=== PATIENT | female | born 1990 | race Caucasian/White ===

== ENCOUNTER 2024-07-11 17:17 | Observation (INO) | payer OTHER, SELFPAY ==
--- NOTE | 2024-07-11 17:46 | PM.OBTRLD ---
Visit Information Visit Information Date of evaluation: 07/11/24 Primary OB Provider: Zoey Banuelos On-call OB Provider: Zoey Banuelos Reason for Evaluation: Yes other
[2024-07-11 18:21] LABS: Add Manual Diff / Slide Review NO; Basophils Absolute Auto 0 /uL (0-100); Basophils Percent Auto 0.4 % (0-2); Eosinophils Absolute Auto 100 /uL (0-450); Eosinophils Percent Auto 0.6 % (2-4); Hematocrit 40.6 % (36-46); Hemoglobin 13.7 g/dL (12.0-16.0); Lymphocytes Absolute Auto 2000 /uL (1100-4500); Lymphocytes Percent Auto 16.8 % (25-40); Mean Corpuscular HGB Conc 33.7 % (30-36); Mean Corpuscular Hemoglobin 31.1 PG (26-34); Mean Corpuscular Volume 92.4 fL (80-100); Monocytes Absolute Auto 600 /uL (0-900); Monocytes Percent Auto 5.3 % (3-14); Neutrophils Absolute Auto 9000 /uL (1500-7000); Neutrophils Percent Auto 76.9 % (50-75); Platelet Count 230 X10^3/uL (150-400); Red Cell Distribution Width 13.9 % (11.6-14.8); White Blood Cell Count 11.7 X10^3/uL (4.5-11.0)
[2024-07-11 18:43] LABS: Alanine Aminotransferase 17 IU/L (<35); Albumin 3.7 g/dL (3.5-5.0); Albumin Globulin Ratio 1.3 (1.0-2.8); Alkaline Phosphatase 103 U/L (38-126); Aspartate Aminotransferase 22 IU/L (14-36); BUN Creatinine Ratio 18.3 (6-22); Bilirubin Total 0.5 mg/dL (0.2-1.3); Blood Urea Nitrogen 13 mg/dL (7-17); Calcium 9.1 mg/dL (8.4-10.2); Carbon Dioxide 24 mmol/L (22-32); Chloride 106 mmol/L (98-107); Estimated Glomerular Filt Rate > 60 mL/min (>60); Globulin 2.8 g/dL (1.7-4.1); Glucose 90 mg/dL (70-100); HEMOLYSIS < 15 (0-50); Potassium 3.4 mmol/L (3.4-5.1); Sodium 134 mmol/L (137-145); Total Protein 6.5 g/dL (6.3-8.2); Uric Acid 2.5 mg/dL (2.5-6.2)
[2024-07-11 18:45] LABS: Creatinine Urine Random 178.03 mg/dL; Protein (Total) Urine Random 11 mg/dL (0-12); Protein Creatinine Ratio Urine 0.06 GRAM/24H
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
== END 2024-07-11 19:50 | disposition home or self-care (01) ==
PROVIDERS: Admitting Provider Advanced Practice Midwife; Referring Provider Advanced Practice Midwife; Visit Provider Advanced Practice Midwife
DX: O99.413 Diseases of the circulatory system complicating pregnancy, third trimester (principal); R03.0 Elevated blood-pressure reading, without diagnosis of hypertension; Z3A.37 37 weeks gestation of pregnancy
CPT/HCPCS: G0378; 36415; 59025; 59050; 80053; 84550; 85025; G0379

== ENCOUNTER 2024-07-31 07:18 | Outpatient (CLI) | payer OTHER, SELFPAY ==
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
[2024-07-31 08:11] LABS: Add Manual Diff / Slide Review NO; Basophils Absolute Auto 0 /uL (0-100); Basophils Percent Auto 0.3 % (0-2); Eosinophils Absolute Auto 0 /uL (0-450); Eosinophils Percent Auto 0.3 % (2-4); Hematocrit 42.7 % (36-46); Hemoglobin 14.4 g/dL (12.0-16.0); Lymphocytes Absolute Auto 1600 /uL (1100-4500); Lymphocytes Percent Auto 12.3 % (25-40); Mean Corpuscular HGB Conc 33.7 % (30-36); Mean Corpuscular Hemoglobin 30.9 PG (26-34); Mean Corpuscular Volume 91.6 fL (80-100); Monocytes Absolute Auto 600 /uL (0-900); Monocytes Percent Auto 4.4 % (3-14); Neutrophils Absolute Auto 10800 /uL (1500-7000); Neutrophils Percent Auto 82.7 % (50-75); Platelet Count 216 X10^3/uL (150-400); Red Blood Cell Count 4.67 X10^6/uL (4.0-5.2); Red Cell Distribution Width 14.1 % (11.6-14.8)
[2024-07-31 08:23] LABS: Alanine Aminotransferase 18 IU/L (<35); Albumin 3.6 g/dL (3.5-5.0); Albumin Globulin Ratio 1.2 (1.0-2.8); Alkaline Phosphatase 114 U/L (38-126); Aspartate Aminotransferase 25 IU/L (14-36); BUN Creatinine Ratio 22.5 (6-22); Bilirubin Total 0.4 mg/dL (0.2-1.3); Blood Urea Nitrogen 16 mg/dL (7-17); Calcium 9.4 mg/dL (8.4-10.2); Carbon Dioxide 20 mmol/L (22-32); Chloride 107 mmol/L (98-107); Estimated Glomerular Filt Rate > 60 mL/min (>60); Glucose 100 mg/dL (70-100); HEMOLYSIS < 15 (0-50); Potassium 3.8 mmol/L (3.4-5.1); Sodium 134 mmol/L (137-145); Total Protein 6.6 g/dL (6.3-8.2); Uric Acid 2.8 mg/dL (2.5-6.2)
[2024-07-31 08:54] LABS: Creatinine Urine Random 106.29 mg/dL; Protein (Total) Urine Random 14 mg/dL (0-12); Protein Creatinine Ratio Urine 0.13 GRAM/24H
== END 2024-07-31 09:25 | disposition home or self-care (01) ==
LOC: LABOR 07:47 → OB 08-01 11:06
PROVIDERS: Referring Provider Advanced Practice Midwife; Visit Provider Advanced Practice Midwife
DX: O99.283 Endocrine, nutritional and metabolic diseases complicating pregnancy, third trimester (principal); O99.343 Other mental disorders complicating pregnancy, third trimester; F41.9 Anxiety disorder, unspecified; O48.0 Post-term pregnancy; Z3A.40 40 weeks gestation of pregnancy
CPT/HCPCS: 59025; 80053; 84550; 85025; 86850; 86900; 86901; G0378; G0379

== ENCOUNTER 2024-07-31 18:09 | Inpatient (IN) | payer OTHER, SELFPAY ==
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
[2024-07-31 19:15] VITALS: BP 128/67
[2024-07-31 20:54] VITALS: BP 138/87; PULSE 85; RESP 18; TEMP 36.2
[2024-07-31] MEDS: LACTATED RINGERS 500 ML 1000 ML IV ×2 (21:25→22:00)
--- NOTE | 2024-07-31 22:14 | PM.AN.REGBLK ---
Regional Block Pre-procedure Procedure: Continuous Lumbar Epidural for L&D Attending OB provider: Zoey Banuelos PMH/ROS narrative: , spontaneous labor, desires epidural. ROS neg with exception of hx of anxiety. PSH/Anesthesia history narrative: Negative Exam narrative: Exam normal, Mall 2 ASA Class: II Labs: Plt 216 07/31/24 Medications: Current Medications Generic Name Dose Route Start Last Admin Trade Name Freq PRN Reason Stop Dose Admin Calcium Carbonate 1,000 mg 07/31/24 19:20 Calcium Carbonate 500 Mg Tab PO Q2HR PRN Dyspepsia Carboprost Tromethamine 250 mcg 07/31/24 19:20 Carboprost 250 Mcg/Ml Ampul IM Q90M PRN Bleeding Fentanyl 50 mcg 07/31/24 19:20 Fentanyl 100 Mcg/2 Ml Inj IV Q1H PRN Pain, Moderate (4-6) Oxytocin/Lactated Ringer's 30 unit in 500 mls @ 200 mls/hr 07/31/24 19:20 Oxytocin Premix IV CONT PRN Bleeding Protocol Tranexamic Acid 1,000 mg/ 100 mls @ 600 mls/hr 07/31/24 19:20 Sodium Chloride IV NOW PRN Bleeding Oxytocin/Lactated Ringer's 30 unit in 500 mls @ 2 mls/hr 07/31/24 19:30 Oxytocin Premix IV TITRATE GINO Protocol 2 MILLIUNIT/MIN Lactated Ringer's 1,000 mls @ 100 mls/hr 07/31/24 19:30 Lactated Ringers IV 08/01/24 05:29 CONT GINO Lidocaine HCl 20 ml 07/31/24 19:20 Lidocaine 1% 20 Ml INJ INTRA-OP PRN Post Delivery Methylergonovine Maleate 0.2 mg 07/31/24 19:20 Methylergonovine 0.2 Mg Tablet PO Q6HR PRN Heavy Bleeding Methylergonovine Maleate 0.2 mg 07/31/24 19:20 Methylergonovine 0.2 Mg/Ml Vial IM NOW PRN Bleeding Mineral Oil 30 ml 07/31/24 19:20 Mineral Oil 30 Ml Udc TOP PRN PRN Version Misoprostol 800 mcg 07/31/24 19:20 Misoprostol 200 Mcg Tablet NJ NOW PRN Bleeding Misoprostol 400 mcg 07/31/24 19:20 Misoprostol 200 Mcg Tablet SL NOW PRN Bleeding Naloxone HCl 0.2 mg 07/31/24 19:20 Naloxone 0.4 Mg/Ml Vial IV Q2MIN PRN Opiate Reversal Ondansetron HCl 4 mg 07/31/24 19:20 Ondansetron 4 Mg/2 Ml Inj IV Q4HR PRN Nausea And Vomiting Oxytocin 10 unit 07/31/24 19:20 Oxytocin 10 Unit/Ml Vial IM NOW PRN Bleeding Allergies: Allergies Allergy/AdvReac Type Severity Reaction Status Date / Time amoxicillin Allergy Rash Verified 07/31/24 20:41 egg Allergy Verified 07/31/24 20:42 sertraline [From Zoloft] Allergy ITCHING Verified 07/31/24 20:42 Procedure Insertion date: 07/31/24 Insertion time: 21:35 Prep/Local: 1% lidocaine (chlorhexidine skin prep, dried x 3 min) Interspace: L4-5 Patient position: sitting Needle: 17 gauge Tuohy Loss of resistance with: saline ALEX at (cm): 8 Catheter placed at SKIN (cm): 16 Catheter in SPACE (cm): 8 Sensory level: T10 Insertion: No CSF, No Blood, No Paresthesia with insertion, No Paresthesia with injection and No Test dose reaction Initial Medications TEST DOSE time: 21:46 Infusion Initial rate (mL/hr): 10 Post-procedure Anesthesia date START: 07/31/24 Anesthesia time START: 21:35 Anesthesia date END: 08/01/24 Anesthesia time END: 04:43 Post-procedure Anesthesia Assessment: Yes CV function: HR/BP stable, Yes Resp function: RR/sat/airway adequate, Yes Post-op hydration adequate, Yes Pain control adequate, Yes Nausea & vomiting absent, Yes Temperature > 36 C, Yes Mental status appropriate and Yes Anesthesia complications
[2024-07-31] MEDS: LACTATED RINGERS 1,000 ML 100 ML IV (22:30)
--- NOTE | 2024-07-31 23:09 | PM.OBPNLAB ---
Date/Time Date Patient Seen: 07/31/24 Time Patient Seen: 21:30 Pain Control Pain control: tolerating well Pelvic Exam Dilation (cm): 6 Effacement (%): 95 station: -2 Amniotic membrane status: Ruptured (2009, clear/bloody fluid noted dripping down her legs) Contractions Monitor mode: External (IA) Contraction frequency (min): 3 Contraction duration (min): 1 Contraction intensity: Moderate Status Heart Rate Baseline: 135 Comments: Intermittent auscultaion: Baseline 135, increases up to 150, no decreases. Assessment and Plan Assessment: active labor Plan: continuous present management Comments: at 40w1d Rh neg GBS neg FHR reassuring by IA SROM x 1.5 hours Active labor Continue present management
--- NOTE | 2024-07-31 23:15 | PM.OBPNLAB ---
Date/Time Date Patient Seen: 07/31/24 Time Patient Seen: 23:16 Pain Control Pain control: epidural Comments: Alexa requested epidural; placed between 0 and 2200. Now comfortable with good movement and consents to cervical exam. VS: BP 121/62 HR: 103 bpm SpO2 97% Temp: 36.6 C Pelvic Exam Dilation (cm): 8 Effacement (%): 95 station: -1 Amniotic membrane status: Ruptured (2009, clear/bloody fluid noted dripping down her legs) Comments: Forebag ruptured at 2256 for copious clear fluild Contractions Monitor mode: External (IA) Contraction frequency (min): 3 Contraction intensity: Moderate Status status: Category ll Heart Rate Baseline: 130 Monitor Accelerations: Present Monitor Decelerations: Absent Monitor Variability: Moderate Comments: Marked variability for four minutes after difficulty tracing for 23 minutes shortly after exam, AROM of forebag, changing positions from R side to on her back for exam, then L side. Assessment and Plan Assessment: active labor Plan: continuous present management Comments: at 40w1d FHR Cat 2 for short period of Marked variability Rh neg GBS neg Membranes ruptured x 3 hours Maternal position changes to resolve concerning FHR after forebag ruptured Hand hold monitor in hands and knees position x 10 minutes then consider position changes Provide reassurance to Alexa & Derrek Anticipate NSVB
--- NOTE | 2024-08-01 03:21 | PM.OBPNLAB ---
Date/Time Date Patient Seen: 08/01/24 Time Patient Seen: 03:21 Pain Control Pain control: epidural Comments: Alexa has rested and gotten a little sleep. She is feeling rectal pressure with each contraction and is ready to start pushing. Vital Signs: Temp: 97.6 F BP: 102/65 SpO2: 96% HR: 71 bpm Pelvic Exam Dilation (cm): 10 Effacement (%): 100 station: +2 Amniotic membrane status: Ruptured (2009, clear/bloody fluid noted dripping down her legs with forebag ruptured at 2256) Contractions Monitor mode: External (IA) Contraction frequency (min): 3 Contraction intensity: Moderate Status status: Category ll Heart Rate Baseline: 125 Monitor Accelerations: Present Monitor Decelerations: Variable Monitor Variability: Moderate Assessment and Plan Assessment: active labor Comments: at 40w2d 2nd stage labor GBS neg Rh neg FHR Cat 2 ROM x 7 hours, afebrile Begin pushing. Anticipate NSVB
[2024-08-01] MEDS: OXYTOCIN PREMIX 30 UNIT/500 ML PLAST..BAG 200 UNIT IV (04:50)
[2024-08-01] MEDS: TRANEXAMIC ACID 1,000 MG in SODIUM CHLORIDE 0.9% 100 ML 600 MG IV (05:07)
[2024-08-01] MEDS: miSOPROStoL 200 MCG TABLET 800 MCG PR (05:10)
[2024-08-01] MEDS: LIDOCAINE 1% 20 ML INJ (05:20)
--- NOTE | 2024-08-01 06:21 | PM.OBPRVD ---
<Zoey Banuelos CNM, [facility] - Last Filed: 08/01/24 06:50> Labor & Delivery Delivery date: 08/01/24 Cervical ripening method: none Induction method: none Delivery monitor: external FHT Route of delivery: Episiotomy description: None L&D Laceration Description: Perineal - 2nd Degree and Vaginal - 2nd Degree Delivery repair: chromic (3-0) Quantitative Blood Loss: 701 Anesthesia Type: Epidural Narrative: Aelxa labored well with good pain relief from epidural. Her blood pressures stayed within normal range during labor. Four hours from last check, Alexa's cervix was complete, complete +2 and she was feeling rectal pressure. With contractions, Alexa began pushing and changed positions several times with assistance from staff. On her R side, the baby girl emerged CODI with no nuchal cord. The posterior shoulder delivered first followed by the anterior hand and shoulder with maternal effort. With one last push, the entire body delivered into hands of SNM. The viable baby girl was placed on the maternal abdomen for drying and stimulation. Apgars 8/9. The cord was double clamped by CNM and cut by FOB after cesation of pulsing. Placenta was inspected and found to be intact with 3 vessel cord. Chux pad was removed and weighed to start QBL calculation. Pitocin was started per protocol and the fundus was firm at the umbilicus. Uterus continued to gush with fundal checks and was boggy so pitocin was increased to max dose and TXA was started with continuous fundal massage. QBL 701mL. Bladder was straight cathed due to leaking of urine with fundal massage for total output of approx 50mL. The perineum was inspected and found to have a 2nd degree vaginal tear that extended to the perineum; repaired with 3-0 chromic by SNM and CHRISTINAM. Mother and baby had stable VS and were skin to skin and learning to breastfeed when providers left the room. [place] Baby 1: gender: Female Presentation: vertex Position: Right Occiput Anterior Placenta delivery description: Spontaneous Cord Vessel Description: 3 Vessels score (1 min): 8 score (5 min): 9 Plan for aftercare: Routine care <Cailin Clements CNM - Last Filed: 08/02/24 09:48> Baby 1: weight: 3.099 kg
[2024-08-01] MEDS: DERMOPLAST SPRAY 20% 60 ML 1 SPRAY TOP (07:52)
[2024-08-01] MEDS: LANOLIN OINT 7 GM 1 APPLIC TOP (07:53)
[2024-08-01] MEDS: WITCH HAZEL/GLYCERIN PADS 1 EACH TOP (07:53)
[2024-08-01] MEDS: KETOROLAC 30 MG/ML VIAL IV (11:32)
[2024-08-01] MEDS: ACETAMINOPHEN 325 MG TABLET 650 MG PO ×2 (11:32→17:17)
[2024-08-01] MEDS: IBUPROFEN 600 MG TABLET PO (17:17)
--- NOTE | 2024-08-02 10:09 | PM.OBDS.1 ---
Discharge Providers Provider Date of admission: 07/31/24 18:09 Discharge Date: 08/02/24 Primary care physician: VIRI Miller CNM Consults: 07/31/24 19:20 Consult to Anesthesiology Urgent Comment: Consulting Provider: Anesthesiologist Reason for consultation: Epidural 08/02/24 06:16 Consult to Teachers' Assistant Routine Comment: Discharge provider: Cailin Clements CNM Summary Hospital Course Date Patient Seen: 08/02/24 Time Patient Seen: 10:09 Diagnoses: O70.1 Hospital Course: Spontaneous term labor progressed well with adequate epidural anesthesia. NSVB with a second degree perineal laceration which was repaired. PPD1: Voiding, ambulating and independently. Tolerating a general diet. Minimal pain is well controlled with PO medication. Vaginal bleeding is light without clots. Peripartum Data Delivery Method: Natural Vaginal Laceration Description: Perineal - 2nd Degree Episiotomy description: None Procedures: O70.1 [place] 1: Gender: Female Disposition of : home Discharge Diagnosis (1) Del w/ 2 deg lac-unsp: Status: Acute Status at Discharge Cognitive/behavioral status at discharge: oriented and calm Functional status at discharge: independent ambulation Overall status at discharge: patient is progressing back to baseline Time Spent with Patient Time attestation: Total time spent providing and/or coordinating discharge services: Time spent: Less than 30 minutes Exam Vital Signs (past 8 hours): BP 103/61, HR 86, RR 16, T 98.4F Const General: cooperative, healthy appearing, comfortable, well developed and well groomed Nutritional Appearance: average body habitus and well nourished Resp Effort & Inspection: normal respiratory effort and able to speak in complete sentences Other: Fundus firm @ U-1, lochia light without clots. Perineum well approximated. Psych Appearance: grossly normal and well kempt Mood: congruent mood Affect: normal affect Discharge Plan Discharge Plan Patient Disposition: Home Discharge orders & Medications Follow up/Referrals: Cailin Clements CNM [[employer] [facility]] - (Follow-up at 2 weeks and 6 weeks. Appointments are in your email.) Diet/Activity/Treatments Diet: Regular Activity: bed rest x 2 weeks, no heavy lifting for 4 weeks, pelvic rest x 6 weeks Skin/Wound/Dressing Care Report to your healthcare provider any signs of infection, such as:: chills, fever, increased pain, unusual drainage and unusual redness Visit Report/Discharge Packet Instructions: DI for Hemorrhage, Fitness, DI for Depression Stand Alone Forms: Discharge: Care, Patient Portal/API, Stroke Signs & Symptoms
== END 2024-08-02 11:45 | disposition home or self-care (01) | DRG 807 ==
PROVIDERS: Admitting Provider Advanced Practice Midwife; Referring Provider Advanced Practice Midwife; Visit Provider Advanced Practice Midwife
DX: O76 Abnormality in fetal heart rate and rhythm complicating labor and delivery (principal); Z37.0 Single live birth; O70.1 Second degree perineal laceration during delivery; Z3A.40 40 weeks gestation of pregnancy; O99.283 Endocrine, nutritional and metabolic diseases complicating pregnancy, third trimester; O99.343 Other mental disorders complicating pregnancy, third trimester; O48.0 Post-term pregnancy; F41.9 Anxiety disorder, unspecified
CPT/HCPCS: 36415; 59025; 59050; 80053; 84550; 85025; 86850; 86900; 86901; G0379; J1885; J2590; S0191